=== PATIENT | male | born 1950 | race Caucasian/White ===

== ENCOUNTER 2021-12-12 14:19 | Outpatient (CLI) | payer OTHER ==
[~2021-12-12 14:19] MED LIST: COUMADIN1 MG PO; LANOXIN0.25 MG PO; TOPROL XL25 MG PO
== END 2021-12-12 14:27 | disposition home or self-care (01) ==
LOC: RAD 14:19
PROVIDERS: ATTEND Physical Medicine & Rehabilitation
DX: M25.561 Pain in right knee (principal); M25.562 Pain in left knee

== ENCOUNTER 2021-12-14 09:43 | Outpatient (CLI) | payer OTHER | END 2021-12-14 09:46 | disposition home or self-care (01) | LOC: SONOGRAMA 09:43 | PROVIDERS: ATTEND Physical Medicine & Rehabilitation | DX: M25.512 Pain in left shoulder (principal) ==